=== PATIENT | female | born 1990 | race Caucasian/White ===

== ENCOUNTER 2017-03-06 19:12 | Emergency (ER) | payer BC, OTHER ==
[~2017-03-06] VITALS: Ht 157.5 cm; Wt 54.4 kg
[2017-03-06 20:19] LABS: BILIRUBIN,URINE NEGATIVE (NEG); GLUCOSE,URINE NEGATIVE (NEG); NITRITE,URINE NEGATIVE (NEG); PROTEIN,URINE NEGATIVE (NEG-TRACE); UROBILINOGEN,URINE 0.2 mg/dL (0.2 mg/dL)
[2017-03-06 20:25] LABS: BACTERIA,URINE 0 /HPF (0-FEW); SQUAMOUS EPITHELIAL CELL,UR FEW /LPF
[2017-03-06 21:11] VITALS: BP 117/76
--- NOTE | 2017-03-06 21:55 | PHYS DOC ---
Past Medical History Past Medical History: UTI Additional Past Medical Histor: LYMES DISEASE Past Surgical History: Appendectomy, Cholecystectomy, Tonsillectomy Alcohol Use: None Drug Use: None Adult General Chief Complaint Chief Complaint: FLANK PAIN HPI HPI Patient is a 26 year old female with history of urinary tract infection pyelonephritis who presents with right flank pain today with nausea malaise and fatigue for the past 3 days. Patient denies fever nausea vomiting and sweats. Reports mild dysuria. No hematuria or history of kidney stones. Last menstrual period was 2 days ago. Patient is not currently on control. No prior abdominal surgeries. Review of Systems Review of Systems Review symptoms as per history of present illness. All other review symptoms are negative. Current Medications Current Medications Current Medications Medications (Trade) Dose Ordered Sig/Ester Start Time Stop Time Status Last Admin Dose Admin Ceftriaxone Sodium 1 gm/ Sodium Chloride 50 ml @ 100 mls/hr Q24H 03/06/17 22:00 UNV Ketorolac Tromethamine (Toradol) 30 mg 1X ONCE 03/06/17 22:00 03/06/17 22:01 UNV Ondansetron HCl (Zofran) 4 mg 1X ONCE 03/06/17 22:00 03/06/17 22:01 UNV Sodium Chloride 1,000 ml @ 1,000 mls/hr 1X ONCE 03/06/17 22:00 03/06/17 22:59 UNV Allergies Allergies Allergies Coded Allergies Type Severity Reaction Last Updated Verified Latex, Natural Rubber Allergy Intermediate 03/06/17 Yes Penicillins Allergy Intermediate 03/06/17 Yes Physical Exam Physical Exam Constitutional: Well developed, well nourished, no acute distress, non-toxic appearance. [] HENT: Normocephalic, atraumatic, bilateral external ears normal, oropharynx moist, no oral exudates, nose normal. [] Eyes: PERRLA, EOMI, conjunctiva normal, no discharge. [] Neck: Normal range of motion, no tenderness, supple, no stridor. [] Cardiovascular:Heart rate regular rhythm, no murmur [] Lungs & Thorax: Bilateral breath sounds clear to auscultation [] Abdomen: Bowel sounds normal, soft, no tenderness, mild suprapubic pain, tenderness.. [] Skin: Warm, dry, no erythema, no rash. [] Back: No tenderness, right CVA tenderness [] Extremities: No tenderness, no cyanosis, no clubbing, ROM intact, no edema. [] Neurologic: Alert and oriented X 3, normal motor function, normal sensory function, no focal deficits noted. [] Psychologic: Affect normal, judgement normal, mood normal. [] Current Patient Data Vital Signs Vital Signs Date Time Temp Pulse Resp B/P (MAP) Pulse Ox O2 Delivery O2 Flow Rate FiO2 03/06/17 19:52 98.2 82 16 152/92 (112) 100 Room Air 98.2 Lab Values Laboratory Tests Test 03/06/17 18:48 03/06/17 19:37 POC Urine HCG, Qualitative Hcg negative (Negative) Urine Collection Type Unknown Urine Color Yellow Urine Clarity Clear Urine pH 7.0 Urine Specific [place] 1.010 Urine Protein Negative mg/dL (NEG-TRACE) Urine Glucose (UA) Negative mg/dL (NEG) Urine Ketones (Stick) Negative mg/dL (NEG) Urine Blood Moderate (NEG) Urine Nitrite Negative (NEG) Urine Bilirubin Negative (NEG) Urine Urobilinogen Dipstick 0.2 mg/dL (0.2 mg/dL) Urine Leukocyte Esterase Moderate (NEG) Urine RBC 11-20 /HPF (0-2) Urine WBC 5-10 /HPF (0-4) Urine Squamous Epithelial Cells Few /LPF Urine Bacteria 0 /HPF (0-FEW) EKG EKG [] Radiology/Procedures Radiology/Procedures [] Course & Med Decision Making Course & Med Decision Making Pertinent Labs and Imaging studies reviewed. (See chart for details) [Presentation consistent with mild or early pyelonephritis. IV fluids, antibiotics given. Patient feels significant improved. Will treat as an outpatient with instructions to follow-up with PCP in 2 days for urine culture results. Return precautions reviewed. Patient verbalizes understanding agreement with discharge instructions prior to departure.] Dragon Disclaimer Dragon Disclaimer This electronic medical record was generated, in whole or in part, using a voice recognition dictation system. Departure Departure Disposition: 01 HOME, SELF-CARE Condition: GOOD Referrals: NO PCP (PCP) Patient Instructions: Pyelonephritis, Adult, [id number] Additional Instructions: You were evaluated in the emergency department for right flank pain. Lab work is consistent with polynephritis or kidney infection. Please increase fluids and take antibiotics as directed. Take pain and nausea medication as needed. Follow-up with your PCP in 2 days for review of urine culture result. Return to the ED if new or worsening symptoms. TU HUTTON DO Mar 06, 2017 21:55
[2017-03-06] MEDS ORDERED: ONDANSETRON PF 4 MG/2 ML VIAL. IV ONE (22:00)
[2017-03-06] MEDS ORDERED: IV NORMAL SALINE 1000ML BAG 1,000 ML IV ONE (22:00)
[2017-03-06] MEDS ORDERED: KETOROLAC TROMETHAMINE 30 MG/ML INJ. IV ONE (22:00)
== END 2017-03-06 23:15 | disposition home or self-care (01) ==
LOC: ER 19:12
DX: R10.30 Lower abdominal pain, unspecified (principal); R11.0 Nausea; R53.81 Other malaise; Z87.440 Personal history of urinary (tract) infections; Z90.49 Acquired absence of other specified parts of digestive tract; Z90.710 Acquired absence of both cervix and uterus; Z88.0 Allergy status to penicillin; Z91.040 Latex allergy status
CPT/HCPCS: 81001; 81025; 87086; 96361; 96365; 96375; 99284; J0690; J1885; J2405; J7030